=== PATIENT | female | born 1950 | race Caucasian/White ===

== ENCOUNTER 2017-07-20 12:57 | Outpatient (CLI) ==
--- NOTE | 2017-07-20 13:38 | DI ---
EXAM: Lumbar spine three views HISTORY: Back pain FINDINGS: Compared to 07/06/2008. Bones appear demineralized. Subtle scoliosis. Mild to moderate bilateral sacroiliac joint arthropathy. Lateral projections reveal moderately severe facet arthropat hy lower lumbar spine and lumbosacral junction. At least mild degenerative disc disease lower lumbar spine and lumbosacral junction. There is anterior spondylolisthesis of L4 on L5 by about 5.2 mm lik anju related to the facet arthropathy. No significant loss of vertebral body height or fracture. Com pared to the prior study, the listhesis at L4/L5 is more noticeable as is the facet arthropathy and g enerative disc disease. IMPRESSION: Worsening degenerative changes of the lower spine with increase in listhesis L4-L5.
--- NOTE | 2017-07-20 13:48 | DI ---
EXAM: Left tibia and fibula AP and lateral views. HISTORY: Leg pain FINDINGS: Compared to 05/18/2015. General bone density is decreased. There is moderate osteoarthri tis of the knee joints which are not completely evaluated on this exam. Ankle joints are within norm al limits. There is deformity of the upper third diaphyseal portions of the leg bones which likely is related to prior trauma which has healed. There is angular deformity and some regional transverse sclerosis as well as mild cortical thickening at these levels which may represent abnormal stress reaction due to the deformity. No acute fracture is obvious. No noticeable change since prior study. IMPRESSION: Old injuries of the upper leg bones which show regional angular deformity possibly leading to abnorma l stress distribution on the bone substance. See above.
--- NOTE | 2017-07-20 13:49 | DI ---
EXAM: Left knee, two-view HISTORY: Pain COMPARISON: None FINDINGS: Bones are demineralized. No acute fracture or dislocation. Old healed fracture of the mi d femur is incompletely imaged. Old healed fracture of the proximal fibula. Remodeling of the proxim al tibia may also be due to old healed fracture. Moderate tricompartmental osteoarthritis. Well mar ginated ossification near the lateral aspect of the knee may be due to old trauma. No joint effusion . IMPERSSION: 1. Moderate osteoarthritis. 2. Several old healed fractures.
== END 2017-07-20 12:58 | disposition home or self-care (01) ==
LOC: RAD 12:57
PROVIDERS: ATTEND Family Medicine
DX: R29.898 Other symptoms and signs involving the musculoskeletal system (principal); R26.9 Unspecified abnormalities of gait and mobility; M79.605 Pain in left leg

== ENCOUNTER 2017-08-18 12:10 | Outpatient (CLI) ==
--- NOTE | 2017-08-18 13:20 | DEXA ---
EXAM: Bone density HISTORY: Osteoporosis with history of vitamin D supplementation, smoking and rheumatoid arthritis COMPARISON: 11/27/2007 TECHNIQUE: Digital images of the thoracolumbar spine and hips were provided and calculation of bone density was obtained. FINDINGS: Digital images demonstrate no compression deformities of the thoracolumbar spine. DEXA scan of the lumbar spine is of good quality. The total BMD equals 0.956 grams per square centimeter. (Prior 0.879) T-score is - 1.9 and Z-score of - 0.2 DEXA of the hips was performed and of good quality. Total bone marrow density of 0.706 grams per square centimeter. T score is - 2.4 and Z-score of - 1.1. T-score on the left is - 2.7. IMPRESSION: Bone density of the hips and lumbar spine demonstrate osteopenia with focal osteoporosis in the left hip by WHO criteria. FRAX calculation tool demonstrates 10-year major osteoporotic fracture risk of 19% and hip fracture r isk of 6.9% T score greater than -1 is normal T score -1 to -2.5 is osteopenia T score less than - 2.5 is osteoporosis
--- NOTE | 2017-08-21 10:30 | MAMMO ---
EXAM: Bilateral digital screening mammogram (2-D and 3-D) History: Baseline screening Findings: MLO and CC views of bilateral breasts demonstrate scattered fibroglandular breast parenchy ma. CAD was viewed by the radiologist. Tomosynthesis was performed. Upper-outer quadrant right breas t masses. No suspicious microcalcifications. Impression: Indeterminate upper-outer quadrant right breast masses. Recommend further evaluation wi th spot compression views and ultrasound. BIRADS 0
== END 2017-08-18 12:11 | disposition home or self-care (01) ==
LOC: RAD 12:10
PROVIDERS: ATTEND Family Medicine
DX: Z12.31 Encounter for screening mammogram for malignant neoplasm of breast (principal); M81.0 Age-related osteoporosis without current pathological fracture
CPT/HCPCS: 77067

== ENCOUNTER 2017-08-28 09:55 | Outpatient (CLI) ==
--- NOTE | 2017-08-28 11:25 | US ---
EXAM: Digital diagnostic right breast mammogram and ultrasound HISTORY: Inconclusive mammogram COMPARISON: 08/18/2017 FINDINGS: Mammogram: Digital diagnostic spot compression CC and MLO views right breast were performed. Tomosy nthesis was utilized. There are two areas of persistent asymmetry in the right upper outer breast, m id and posterior depth. Ultrasound: Right breast ultrasound was performed from the 9 - 12 o'clock position in the regions of mammographic findings. No sonographic abnormality identified. IMPRESSION: Right breast asymmetries without sonographic correlate. Findings are probably benign. Diagnostic mammogram recommended in 6 months for reevaluation. BIRADS category 3, probably benign
== END 2017-08-28 09:56 | disposition home or self-care (01) ==
LOC: RAD 09:55
PROVIDERS: ATTEND Family Medicine
DX: R92.8 Other abnormal and inconclusive findings on diagnostic imaging of breast (principal)